=== PATIENT | male | born 1975 | race Caucasian/White ===

== ENCOUNTER 2024-12-26 23:35 | Emergency (ER) | payer OTHER ==
[~2024-12-26] VITALS: Ht 172.7 cm; Wt 67.6 kg
[2024-12-26] MEDS ORDERED: MORPHINE SULFATE 4 MG/1 ML DISP.SYRIN ONE (23:48)
[2024-12-26] MEDS: MORPHINE SULFATE 4 MG/1 ML DISP.SYRIN IM ONE (23:55)
[2024-12-27] MEDS ORDERED: HYDR-4209 PO (02:31)
[2024-12-27] MEDS ORDERED: CYCL5TAB PO (02:31)
[2024-12-27 02:35] VITALS: BP 143/74; TEMP 98; O2SAT 100
== END 2024-12-27 02:35 | disposition home or self-care (01) ==
LOC: ER 23:35
DX: S06.0X0A Concussion without loss of consciousness, initial encounter (principal); S16.1XXA Strain of muscle, fascia and tendon at neck level, initial encounter; S29.012A Strain of muscle and tendon of back wall of thorax, initial encounter; S39.012A Strain of muscle, fascia and tendon of lower back, initial encounter; S30.0XXA Contusion of lower back and pelvis, initial encounter; S80.01XA Contusion of right knee, initial encounter; E78.5 Hyperlipidemia, unspecified; I10 Essential (primary) hypertension; Z79.82 Long term (current) use of aspirin; Z95.1 Presence of aortocoronary bypass graft; Z60.2 Problems related to living alone; Z95.5 Presence of coronary angioplasty implant and graft; V43.52XA Car driver injured in collision with other type car in traffic accident, initial encounter; Y93.89 Activity, other specified; Y92.488 Other paved roadways as the place of occurrence of the external cause; Y99.8 Other external cause status
CPT/HCPCS: 99285; 70450; 71045; 73560; 72125; 72128; 72131; 96372; J2270; A4606; A4663